=== PATIENT | male | born 1995 | race Caucasian/White ===

== ENCOUNTER → 2018-02-25 | Outpatient (CLI) | payer BC | LOC: FIMAGING 11:41 | PROVIDERS: ATTEND Psychiatry & Neurology Neurology | DX: R56.9 Unspecified convulsions (principal); R90.89 Other abnormal findings on diagnostic imaging of central nervous system ==

== ENCOUNTER → 2018-03-05 | Outpatient (CLI) | payer BC ==
--- NOTE | 2018-03-06 10:30 | CPEEG ---
[f rep st] ELECTROENCEPHALOGRAM DATE OF STUDY: 03/05/2018 INTERPRETATION: This 4-hour video EEG recording is normal. There were no potentially epileptogenic abnormalities present in the awake or sleep recordings. During the video EEG monitoring session, the patient did not have any clinical events. REPORT: This 4-hour video EEG contains 11 Hz alpha to the posterior head regions. There was no abno rmal activation at rest or during photic stimulation or hyperventilation. Patient became drowsy and fell into sustained sleep during the study. There was no abnormal activation during drowsiness, slee p, or during times of arousal. The patient did not have any clinical events during the video EEG mon itoring session. /[id number]/MODL
== END ==
LOC: FCPNEURO 07:48
PROVIDERS: ATTEND Psychiatry & Neurology Neurology
DX: R56.9 Unspecified convulsions (principal)